=== PATIENT | male | born 1940 | race Caucasian/White ===

== ENCOUNTER 2021-04-13 01:28 | Inpatient (IN) | payer MEDICARE ==
[2021-04-13] VITALS (23 sets, daily range): BP systolic 114–173; BP diastolic 46–78
[~2021-04-13] VITALS: Ht 177.8 cm; Wt 107.3 kg
[2021-04-13] MEDS ORDERED: LABETALOL 20 MG/4 ML DISP.SYRIN. IVP PRN (02:15)
--- NOTE | 2021-04-13 02:26 | NUR ---
Pt admitted to room 109 from [facility] ED via EMS at 0100. Pt is alert and oriented but forgetful. Pt was unable to tell me what he was allergic too and he realized that he could not remember. Unable to give current medication list. Abrasions to Right knee, elbow, thumb, chin, above right eyebrow and right uatsdin area. Facial bruising noted to the forehead with swelling. Dr. Knight notified of pts admission at 0140 new orders received and instructed to consult Dr. Figueredo in the Am. NIHSS is 0, pt has no neurological deficits except for some forgetfulness. See assessment for further details.
[2021-04-13] MEDS ORDERED: IV NORMAL SALINE 1000ML BAG 1,000 ML IV ONE (09:45)
[2021-04-13] MEDS ORDERED: ONDANSETRON PF 4 MG/2 ML VIAL. IVP PRN (09:45)
[2021-04-13] MEDS ORDERED: fentaNYL PF VIAL 100 MCG/2 ML VIAL IVP PRN (09:45)
[2021-04-13] MEDS ORDERED: guaiFENesin DM 200MG/20MG 10 ML SYRUP PO PRN (09:45)
--- NOTE | 2021-04-13 09:57 | PDOC1 ---
History and Physical Date of Admission Date of Admission DATE: 04/13/21 TIME: 09:43 Identification/Chief Complaint Chief Complaint Fall Source Source: Patient History of Present Illness History of Present Illness Mr Hendrickson is a 80yo male with history of diabetes type 2, hypertension, high cholesterol, CAD s/p CABG who presents the ED at [facility] to be evaluated after falling. EMS reports he was walking into his house, he got dizzy and hit his head on a brick wall and fell. Patient notes he blacked out. EMS found patient slumped over the toilet, nonverbal, he had right-sided facial droop and right-sided weakness, but upon moving into ambulance he was moving his right side and right-sided facial droop improved. Labs with WBC 14.3, Hb 15.3, platelets 215, INR 1, PTT 23, lactic acid 4.1, NA 142, K4.3, BUN 25, CR 1.7, glucose 209, calcium 9.3, mag 2.2, bilirubin 0.6, AST 67, ALT 87, alkaline phosphatase 82, albumin 3.9, CK 240, rapid COVID-19 negative. Chest radiograph no acute abnormality, right shoulder x-ray with no fracture or dislocation CT head and cervical spine with right frontals scalp hematoma 1 cm thick and subdural hematoma on the right to 3 mm no midline shift. No CT neck abnormalities EKG sinus rhythm rate of 79 bpm T inverted in lead III flattened in lead II inverted in aVF. QTc 414. He was transferred to [facility] for further care for his SDH. Seen bedside in the ICU. He notes he is feeling a little confused. He also notes that frequently he has got lightheaded when standing up quickly and has once before passed out similar to bolus. No history of seizures previously. He is complaining of right shoulder pain and right elbow pain and right fifth finger pain Past Medical History Cardiovascular: CAD, HTN, Hyperlipidemia Endocrine: Diabetes Past Surgical History Past Surgical History: Appendectomy, CABG Family History Family History: Coronary Artery Disease, High Cholestrol, Hypertension Social History Smoke: No ALCOHOL: none Drugs: None Current Medications Current Medications Current Medications Acetaminophen (Tylenol) 650 mg PRN Q6HRS PRN PO MILD PAIN / TEMP > 100.3'F; Start 04/13/21 at 02:15 Labetalol HCl (Normodyne Iv Push) 10 mg PRN Q15MIN PRN IVP HYPERTENSION; Start 04/13/21 at 02:15 Allergies Allergies: Coded Allergies: Penicillins (Verified Allergy, Unknown, 04/13/21) ROS General: YES: Fatigue, Malaise; No: Chills, Night Sweats, Appetite, Other PSYCHOLOGICAL ROS: No: Anxiety, Behavioral Disorder, Concentration difficultie, Decreased libido, Depression, Disorientation, Hallucinations, Hostility, Irritablity, Memory difficulties, Mood Swings, Obsessive thoughts, Physical abuse, Sexual abuse, Sleep disturbances, Suicidal ideation, Other Eyes: No Blurry vision, No Decreased vision, No Double vision, No Dry eyes, No Excessive tearing, No Eye Pain, No Itchy Eyes, No Loss of vision, No Photophobia, No Scotomata, No Uses contacts, No Uses glasses, No Other HEENT: YES: Heacaches; No: Visual Changes, Hearing change, Nasal congestion, Nasal discharge, Oral lesions, Sinus pain, Sore Throat, Epistaxis, Sneezing, Snoring, Tinnitus, Vertigo, Vocal changes, Other ALLERGY AND IMMUNOLOGY: No: Hives, Insect Bite Sensitivity, Itchy/Watery Eyes, Nasal Congestion, Post Nasal Drip, Seasonal Allergies, Other Hematological and Lymphatic: No: Bleeding Problems, Blood Clots, Blood Transfusions, Brusing, Night Sweats, Pallor, Swollen Lymph Nodes, Other ENDOCRINE: No: Breast Changes, Galactorrhea, Hair Pattern Changes, Hot Flashes, Malaise/lethargy, Mood Swings, Palpitations, Polydipsia/polyuria, Skin Changes, Temperature Intolerance, Unexpected Weight Changes, Other Breast: No New/Changing Breast Lumps, No Nipple changes, No Nipple discharge, No Other Respiratory: No: Cough, Hemoptysis, Orthopnea, Pleuritic Pain, Shortness of breath, SOB with excertion, Sputum Changes, Stridor, Tachypnea, Wheezing, Other Cardiovascular: No Chest Pain, No Palpitations, No Orthopnea, No Paroxysmal Noc. Dyspnea, No Edema, No Lt Headedness, No Other Gastrointestinal: No Nausea, No Vomiting, No Abdominal Pain, No Diarrhea, No Constipation, No Melena, No Hematochezia, No Other Genitourinary: No Dysuria, No Frequency, No Incontinence, No Hematuria, No Retention, No Discharge, No Urgency, No Pain, No Flank Pain, No Other, No , No , No , No , No , No , No Musculoskeletal: No Gait Disturbance, No Joint Pain, No Joint Stiffness, No Joint Swelling, No Muscle Pain, No Muscular Weakness, No Pain In:, No Swelling In:, No Other Neurological: No Behavorial Changes, No Bowel/Bladder ControlChng, No Confusion, No Dizziness, No Gait Disturbance, No Headaches, No Impaired Coord/balance, No Memory Loss, No Numbness/Tingling, No Seizures, No Speech Problems, No Tremors, No Visual Changes, No Weakness, No Other Skin: No Dry Skin, No Eczema, No Hair Changes, No Lumps, No Mole Changes, No Mottling, No Nail Changes, No Pruritus, No Rash, No Skin Lesion Changes, No Other, No Acne Physical Exam General: Alert, Cooperative, No acute distress HEENT: PERRLA, EOMI, Mucous membr. moist/pink, Other (To bruises above right orbit and on right chin.) Lungs: Clear to auscultation, Normal air movement Heart: S1S2, RRR, no thrills, no rubs, no gallops, no murmurs Abdomen: Normal bowel sounds, Soft, No tenderness, No hepatosplenomegaly, No masses Rectal Exam: not examined Extremities: No edema, Normal pulses Skin: Other (Right upper extremity with no obvious deformity but tenderness on palpation of the right shoulder, limited range of motion to the right upper extremity specifically shoulder due to pain. Equal radial, medial, ulnar s ensation to the right fingers. +2 right radial pulse. Cap refill less than 2 seconds the right fingers) Neuro: Normal gait, Normal speech, Strength at 5/5 X4 ext, Normal tone, Sensation intact, Cranial nerves 3-12 NL, Reflexes 2+ Psych/Mental Status: Mental status NL, Mood NL Vitals Vitals Vital Signs Date Time Temp Pulse Resp B/P (MAP) Pulse Ox O2 Delivery O2 Flow Rate FiO2 04/13/21 07:00 67 20 139/52 (81) 97 Room Air 04/13/21 04:[address] head and cervical spine without contrast 04/12/2021 8:35 PM Head: There is a right for head scalp hematoma measuring 1.0 cm in thickness. There is a subdural hematoma along the falx measuring up to 3 mm asymmetric to the left. Ventricles, sulci and basal cisterns are prominent compatible with mild generalized cerebral volume loss. There is no hydrocephalus. Luevano-white matter differentiation is normal. There is no mass, mass effect or midline shift. Posterior fossa is normal in appearance. Visualized portions of the orbits are normal with exception of bilateral lens replacement. Paranasal sinuses are well aerated. Mastoid air cells are well aerated. Cervical spine: Alignment of the cervical spine is normal. Vertebral body heights are maintained. No acute fracture is identified. There is moderate to advanced disc height loss at C3-C4, C5-C6 and C6-C7. Degenerative changes are identified at t he atlantoaxial articulation with thickening of the transverse ligament. Posterior fossa is normal in appearance. Skull base is intact. At C2-C3, there is a posterior disc osteophyte complex. Severe facet arthropathy with mild uncovertebral joint disease resulting in moderate bilateral neuroforaminal stenosis. At C3-C4, there is a posterior disc osteophyte complex with severe right and moderate left facet arthropathy and mild uncovertebral joint disease resulting in moderate right and mild left foraminal stenosis and mild osseous canal stenosis. At C4-C5, there is a mild disc bulge. Moderate facet and uncovertebral joint disease with mild bilateral neuroforaminal stenosis. At C5-C6, there is a posterior disc osteophyte complex with calcified left central disc extrusion. Moderate facet arthropathy. Severe left and moderate joint disease. Moderate left and mild right neural foraminal stenosis. Moderate spinal canal stenosis. At C6-C7, there is a posterior disc osteophyte complex. Mild facet arthropathy. Moderate uncovertebral joint disease. Mild to moderate left neuroforaminal stenosis. Mild osseous spinal canal stenosis. There is no compressive epidural hematoma. No paraspinal soft tissue abnormality. Thyroid gland is normal in appearance. IMPRESSION: 1. There is a subdural hematoma along the falx measuring 3 mm without significant midline shift or mass effect. Next on 2. Mild generalized cerebral volume loss. Low-attenuation in the periventricular white matter is suggestive of chronic small vessel ischemic changes. 3. No acute fracture or malalignment of the cervical spine. Moderate cervical spondylosis. VTE Prophylaxis Ordered VTE Prophylaxis Devices: Yes VTE Pharmacological Prophylaxi: Contraindicated Assessment/Plan Assessment/Plan A/P: Subdural hematoma - will monitor in ICU. Neurosurgery consulted. Strict BP control. Made in ICU. Repeat CT head 24 to 36 hours per neurosurgery recommendation Confusion - metabolic encephalopathy likely post-concussive, less likely post- ictal, no seizure history Syncope -sounds like vasovagal syncope versus orthostatic hypotension. Will remain on telemetry monitoring check carotid Dopplers. PT for gait testing. Orthostatics Right shoulder pain -simple musculoskeletal injury no fracture on radiograph Facial contusion -local wound care KEM -likely vasomotor nephropathy from dehydration with fall will hydrate Transaminitis -no clear etiology may be hypotension mediated Leukocytosis -stress related with SDH Diabetes type 2 - sliding scale Hypertension - IV labetalol High cholesterol - statin CAD s/p CABG - bb FEN - ADAT PPX - SCDs FULL CODE Dispo - ICU cc time 47 min Justifications for Admission Other Justification QUIANA TAVARES MD Apr 13, 2021 09:57
--- NOTE | 2021-04-13 14:35 | RAD ---
Exam performed: Right elbow and hand/fifth digit. HISTORY: Fall, pain. DATE OF SERVICE: 04/21/2020 comparison: None available Findings : Single AP view of the right hip as well as lateral and oblique views of the fifth digit is obtained. Normal alignment is preserved. There is a small ossific fragment seen in the distal dorsal aspect of the middle phalanx with associated soft tissue swelling. AP and lateral view of the right elbow demonstrates normal alignment. There is no acute fracture or d islocation. No soft tissue swelling or foreign body seen. There is no joint effusion. IMPRESSION: Suspected avulsion fracture at the distal dorsal aspect of the fifth middle phalanx No acute abnormality seen in the right elbow Electronically signed by: Carrie Milton MD (04/13/2021 2:32 PM) [facility]
--- NOTE | 2021-04-13 16:01 | RAD ---
Exam performed: CT scan of the head without contrast. Date of Service: 04/13/2021. Comparison: None available. Clinical History: Follow-up subdural hemorrhage. Technique: Helical acquisitions are obtained from the foramen magnum to the vertex without intravenou s administration of contrast. Findings: There is interval improvement in previously seen subdural hematoma along the anterior falx which now measures up to 2.2 mm (previously measured 3.3 mm. There is also improvement in previously seen right scalp hematoma. Prominence of cortical sulci and ventricular system is noted consistent with age-related atrophy. The re are areas of low-attenuation in both periventricular and subcortical deep white matter suggesting small vessel ischemic changes. Normal meade-white differentiation is maintained. There is no extra ax ial fluid collection, intraparenchymal hemorrhage or mass lesion. The visualized portions of the orb its, paranasal sinuses and the mastoid air cells appear clear. The calvarium is intact. Impression: 1. Interval improvement in previously seen subdural hematoma along the anterior falx. PQRS Compliance Statement: One or more of the following individualized dose reduction techniques were utilized for this examinat ion: 1. Automated exposure control 2. Adjustment of the mA and/or kV according to patient size 3. Use of iterative reconstruction technique Electronically signed by: Carrie Milton MD (04/13/2021 3:58 PM) [facility]
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
--- NOTE | 2021-04-13 17:00 | PDOC ---
Provider Note Date of Service: DATE: 04/13/21 TIME: 16:52 Provider Note Patient seen and examined at 1345 consulted for SDH fell on brick steps c/o mild headache alert, oriented. Pupils equal and reactive to light, extraocular movements areintact. normal strength and sensation intact Subdural hematoma along the falx measuring 3 mm without midline shift. He just had a second head CT which appears stable, slightly improved. ok to downgrade and keep in ICU overnight. SCDs D/W RN Justifications for Admission Other Justification YSABEL PATTON MD Apr 13, 2021 17:00
--- NOTE | 2021-04-13 17:57 | RAD ---
EXAM: Bilateral carotid duplex with waveform analysis. CLINICAL HISTORY: Reason: Syncope, assess for carotid or vertebral insufficiency / Spl. Instructions: / History: . TECHNIQUE: Longitudinal and transverse sonographic images of the bilateral carotid arteries was perfo rmed utilizing grayscale, color and spectral Doppler techniques. COMPARISON: None available FINDINGS: Right Carotid: Mild scattered plaquing seen.. Left Carotid: Mild scattered plaquing seen . Vertebrals: Antegrade flow bilaterally. Right: PSV CCA (cm/s): 106.0 PSV ICA (cm/s): 126.0 EDV ICA (cm/s): 19.0 PSV ECA (cm/s): 156.0 ICA/CCA Ratio: 1.2 Left: PSV CCA (cm/s): 119 .0 PSV ICA (cm/s): 129.0 EDV ICA (cm/s): 23.0 PSV ECA (cm/s): 335.0 ICA/CCA Ratio: 1.3 IMPRESSION: Mild atheromatous plaquing involving both carotid arteries. No evidence of aortic stenosis seen. Markedly elevated velocities in the left external carotid artery suggesting moderate to severe stenos is Consensus Panel Luevano-scale and Doppler US Criteria for Diagnosis of ICA Stenosis Degree of Stenosis (%) ICA PSV (Cm/sec) Plaque Estimate (%)* Normal <125 None <50 <125 <50 50-69 125-230 >50 >70 but < near occlusion >230 >50 Near occlusion High, low, or undetectable Visible Total occlusion Undetectable Visible, no detectable lumen *Plaque estimate (diameter reduction) with luevano-scale and color Doppler US Degree of Stenosis (%) ICA/CCA PSV Ratio ICA EDV (cm/sec) Normal <2.0 <40 <50 <2.0 <40 50-69 2.0-4.0 40-100 >70 but < near occlusion >4.0 >100 Near occlusion Variable Variable Total occlusion Not applicable Not applicable Electronically signed by: Carrie Milton MD (04/13/2021 5:55 PM) [facility]
[2021-04-14 03:03] VITALS: BP 169/66
[2021-04-14] MEDS ORDERED: METF500T16 PO (05:58)
[2021-04-14] MEDS ORDERED: ASPI81TA59 PO (05:58)
[2021-04-14] MEDS ORDERED: METO-247 PO (05:58)
[2021-04-14] MEDS ORDERED: HYDR12.58 PO (06:40)
[2021-04-14] MEDS ORDERED: cholesterol med (06:41)
[2021-04-14 07:00] VITALS: BP 184/84
--- NOTE | 2021-04-14 08:35 | PDOC ---
PROGRESS NOTES Date of Service DATE: 04/14/21 TIME: 08:32 Assessment Subdural hematoma along the falx measuring 3 mm without midline shift. Improved on second head CT 04/13 Cardiogenic syncope, no evidence that he had a seizure or a stroke Plan Okay to transfer to telemetry Neurosurgery is also following. PT/OT Objective Vital Signs Date Time Temp Pulse Resp B/P (MAP) Pulse Ox O2 Delivery O2 Flow Rate FiO2 04/14/21 03:03 97.8 73 16 169/66 (100) 96 Room Air 97.8 Intake and Output 04/14/21 07:00 Intake Total 1500 ml Output Total 1 ml Balance 1499 ml Intake Oral 500 ml IV Total 1000 ml Output Urine Total 1 ml # Voids 2 # Bowel Movements 1 PHYSICAL EXAM Alert. Oriented to time, place and person. PERRL. EOMI. CN: no focal findings. Muscle tone: normal. Muscle strength: 5/5 DTR: 1+ Plantar reflex: Flexor Gait: not examined in bed. Sensory exam: no abnormal findings. No cerebellar signs elicited. Review of Relevant I have reviewed the following items deirdre (where applicable) has been applied. Medications Current Medications Acetaminophen (Tylenol) 650 mg PRN Q6HRS PRN PO MILD PAIN / TEMP > 100.3'F; Start 04/13/21 at 02:15 Labetalol HCl (Normodyne Iv Push) 10 mg PRN Q15MIN PRN IVP HYPERTENSION; Start 04/13/21 at 02:15 Ondansetron HCl (Zofran) 4 mg PRN Q4HRS PRN IVP NAUSEA/VOMITING; Start 04/13/21 at 09:45 Guaifenesin (Robitussin Dm) 10 ml PRN Q6HRS PRN PO COUGH; Start 04/13/21 at 09:45 Fentanyl Citrate (Fentanyl 2ml Vial) 25 mcg PRN Q3HRS PRN IVP SEVERE PAIN 7-10 Last administered on 04/13/21at 11:42; Start 04/13/21 at 09:45 Sodium Chloride 1,000 ml @ 100 mls/hr 1X ONCE IV Last administered on 04/13/21at 11:42; Start 04/13/21 at 09:45; Stop 04/13/21 at 19:44; Status DC Active Scripts Active Reported [cholesterol med] Hydrochlorothiazide Tablet (Hydrochlorothiazide) 12.5 Mg Tablet 12.5 Mg PO DAILY Metoprolol Succinate ( Xl ) (Metoprolol Succinate) 100 Mg Tab.er.24h 100 Mg PO DAILY Children's Aspirin (Aspirin) 81 Mg Tab.chew 81 Mg PO DAILY Metformin Hcl 500 Mg Tablet 500 Mg PO BIDWMEALS Vitals/I & O Vital Sign - Last 24 Hours 04/13/21 04/13/21 04/13/21 04/13/21 09:00 10:00 11:00 11:42 Pulse 66 68 65 Resp 14 14 12 10 B/P (MAP) 139/66 (90) 142/60 (87) 140/65 (90) Pulse Ox 98 98 98 96 O2 Delivery Room Air Room Air Room Air Room Air 04/13/21 04/13/21 04/13/21 04/13/21 12:00 12:00 12:00 13:00 Temp 98.9 98.9 Pulse 64 72 Resp 14 15 16 B/P (MAP) 114/46 (68) 153/66 (95) Pulse Ox 94 97 94 O2 Delivery Room Air Room Air Room Air Room Air 04/13/21 04/13/21 04/13/21 04/13/21 14:00 15:00 16:00 16:00 Temp 98.7 98.7 Pulse 64 67 68 Resp 16 13 12 B/P (MAP) 118/52 (74) 145/62 (89) 150/68 (95) Pulse Ox 97 96 97 O2 Delivery Room Air Room Air Room Air Room Air 04/13/21 04/13/21 04/13/21 04/13/21 17:00 18:00 19:00 20:00 Temp 98.8 98.8 Pulse 68 65 72 Resp 12 15 20 B/P (MAP) 116/46 (69) 165/72 (103) 168/74 (105) Pulse Ox 97 99 97 O2 Delivery Room Air Room Air Room Air Room Air 04/13/21 04/14/21 23:00 03:03 Temp 98.7 97.8 98.7 97.8 Pulse 75 73 Resp 20 16 B/P (MAP) 165/76 (105) 169/66 (100) Pulse Ox 96 96 O2 Delivery Room Air Room Air Intake and Output 04/13/21 04/13/21 04/14/21 15:00 23:00 07:00 Intake Total 400 ml 1000 ml 100 ml Output Total 1 ml 0 ml Balance 399 ml 1000 ml [address] scan of the head without contrast, 04/13/2021. There is interval improvement in previously seen subdural hematoma along the anterior falx which now measures up to 2.2 mm (previously measured 3.3 mm. There is also improvement in previously seen right scalp hematoma. Prominence of cortical sulci and ventricular system is noted consistent with age-related atrophy. There are areas of low-attenuation in both periventricular and subcortical deep white matter suggesting small vessel ischemic changes. Normal meade-white differentiation is maintained. There is no extra axial fluid collection, intraparenchymal hemorrhage or mass lesion. The visualized portions of the orbits, paranasal sinuses and the mastoid air cells appear clear. The calvarium is intact. Impression: 1. Interval improvement in previously seen subdural hematoma along the anterior falx. Justicifation of Admission Dx: Justifications for Admission: Justification of Admission Dx: N/A RADHA BERNAL MD Apr 14, 2021 08:35
[2021-04-14] MEDS: ACETAMINOPHEN 325 MG TABLET. PO PRN ×2 (08:49→20:53)
[2021-04-14] MEDS: METOPROLOL SUCC 24HR ER 100 MG TAB.ER.24H. PO SCH (09:46)
[2021-04-14] MEDS: hydroCHLOROthiazide 12.5 MG CAPSULE PO SCH (09:46)
--- NOTE | 2021-04-14 10:01 | PDOC ---
[facility] PROGRESS NOTE Date of Service DOS: DATE: 04/14/21 TIME: 09:56 Chief Complaint Chief Complaint Subdural hematoma - will monitor in ICU. Neurosurgery consulted. needs better BP control. Repeat CT head better neurosurg and neuro following Acute metabolic encephalopathy likely post-concussive, less likely post-ictal, no seizure history Syncope - vasovagal syncope versus orthostatic hypotension. on telemetry nicole toring check carotid Dopplers. PT for gait testing. Orthostatics Right shoulder pain musculoskeletal injury no fracture on radiograph Facial contusion -local wound care acute vasomotor nephropathy from dehydration Transaminitis -no clear etiology may be hypotension mediated Leukocytosis -stress related with SDH Diabetes type 2 - sliding scale Hypertension - IV labetalol High cholesterol - statin CAD s/p CABG - bb History of Present Illness History of Present Illness increase BP meds right thumb pain, pain control, OOB to chair downgrade to med monitor Vitals/I&O Vitals/I&O: Vital Signs Date Time Temp Pulse Resp B/P (MAP) Pulse Ox O2 Delivery O2 Flow Rate FiO2 04/14/21 09:46 82 176/74 04/14/21 08:00 Room Air 04/14/21 07:00 99.3 24 98 99.3 I & O 04/13/21 04/13/21 04/14/21 15:00 23:00 07:00 Intake Total 400 ml 1000 ml 100 ml Output Total 1 ml 0 ml Balance 399 ml 1000 ml 100 ml Physical Exam General: Alert, Cooperative, No acute distress Heart: Regular rate Abdomen: Normal bowel sounds, Soft, No tenderness, No hepatosplenomegaly, No masses Extremities: No edema, Normal pulses Skin: No rashes, Other (Right upper extremity with no obvious deformity but tenderness on palpation of the right shoulder, limited range of motion to the right upper extremity specifically shoulder due to pain. Equal radial, medial, ulnar sensation to the right fingers. +2 right radial pulse. Cap refill less than 2 seconds the right fingers) Comment Review of Relevant I have reviewed the following items deirdre (where applicable) has been applied. Medications: Current Medications Medications (Trade) Dose Ordered Sig/[place] Route PRN Reason Start Time Stop Time Status Last Admin Dose Admin Metoprolol Succinate (Toprol Xl) 100 mg DAILY PO 04/14/21 10:00 04/14/21 09:46 Hydrochlorothiazide (Microzide) 12.5 mg DAILY PO 04/14/21 10:00 04/14/21 09:46 Justifications for Admission Other Justification JAYCE MAYA MD Apr 14, 2021 10:01
[2021-04-14 10:45] LABS: ALBUMIN 3.1 g/dL (3.4-5.0); ALBUMIN/GLOBULIN RATIO 0.8 (1.0-1.7); CALCIUM 8.5 mg/dL (8.5-10.1); CREATININE 0.9 mg/dL (0.7-1.3); GFR 81.6; POTASSIUM 4.1 mmol/L (3.5-5.1); TOTAL BILIRUBIN 1.2 mg/dL (0.2-1.0)
--- NOTE | 2021-04-14 10:50 | NUR ---
SS following for discharge planning. SS reviewed pt chart and discussed with pt RN. Pt is from home with spouse and is currently on room air. Neurosurgery and Neurology consulted. PT/OT ordered. SS will continue to follow for discharge planning.
[2021-04-14 11:00] VITALS: BP 169/61
[2021-04-14] MEDS ORDERED: LISI20TA18 PO (11:33)
[2021-04-14] MEDS ORDERED: SIMV20TA18 PO (11:33)
[2021-04-14] MEDS ORDERED: GABA800T5 PO (11:33)
[2021-04-14] MEDS ORDERED: OMEG1CAP38 PO (11:33)
[2021-04-14] MEDS ORDERED: TRIA1CAP3 PO (11:33)
[2021-04-14] MEDS ORDERED: GLIP10TA24 PO (11:33)
[2021-04-14] MEDS ORDERED: VITA400T6 PO (11:33)
[2021-04-14] MEDS ORDERED: VITA25006 PO (11:33)
--- NOTE | 2021-04-14 12:00 | PDOC ---
PROGRESS NOTES Date of Service DATE: 04/14/21 TIME: 11:58 Subjective Subjective up in chair denies headache Objective Objective Vital Signs Date Time Temp Pulse Resp B/P (MAP) Pulse Ox O2 Delivery O2 Flow Rate FiO2 04/14/21 11:00 98.4 71 16 169/61 (97) 97 Room Air 98.4 Intake and Output 04/14/21 07:00 Intake Total 1500 ml Output Total 1 ml Balance 1499 ml Intake Oral 500 ml IV Total 1000 ml Output Urine Total 1 ml # Voids 2 # Bowel Movements 1 Physical Exam General: Alert, Cooperative, No acute distress MUSCULOSKELETAL: Other (PLEITEZ) Neuro: Normal speech Plan Plan of Care Subdural hematoma along the falx measuring 3 mm without midline shift. Improved on second head CT 04/13 OK to transfer to floor will arrange f/u CT head in 10 to 14 days Comment Review of Relevant I have reviewed the following items deirdre (where applicable) has been applied. Labs Laboratory Tests Test 04/14/21 10:05 Sodium Level 138 mmol/L (136-145) Potassium Level 4.1 mmol/L (3.5-5.1) Chloride Level 103 mmol/L (98-107) Carbon Dioxide Level 22 mmol/L (21-32) Anion Gap 13 (6-14) Blood Urea Nitrogen 15 mg/dL (8-26) Creatinine 0.9 mg/dL (0.7-1.3) Estimated GFR (Cockcroft-Gault) 81.6 BUN/Creatinine Ratio 17 (6-20) Glucose Level 267 mg/dL (70-99) Calcium Level 8.5 mg/dL (8.5-10.1) Total Bilirubin 1.2 mg/dL (0.2-1.0) Aspartate Amino Transf (AST/SGOT) 27 U/L (15-37) Alanine Aminotransferase (ALT/SGPT) 53 U/L (16-63) Alkaline Phosphatase 64 U/L (46-116) Total Protein 7.0 g/dL (6.4-8.2) Albumin 3.1 g/dL (3.4-5.0) Albumin/Globulin Ratio 0.8 (1.0-1.7) Laboratory Tests Test 04/14/21 10:05 Sodium Level 138 mmol/L (136-145) Potassium Level 4.1 mmol/L (3.5-5.1) Chloride Level 103 mmol/L (98-107) Carbon Dioxide Level 22 mmol/L (21-32) Anion Gap 13 (6-14) Blood Urea Nitrogen 15 mg/dL (8-26) Creatinine 0.9 mg/dL (0.7-1.3) Estimated GFR (Cockcroft-Gault) 81.6 BUN/Creatinine Ratio 17 (6-20) Glucose Level 267 mg/dL (70-99) Calcium Level 8.5 mg/dL (8.5-10.1) Total Bilirubin 1.2 mg/dL (0.2-1.0) Aspartate Amino Transf (AST/SGOT) 27 U/L (15-37) Alanine Aminotransferase (ALT/SGPT) 53 U/L (16-63) Alkaline Phosphatase 64 U/L (46-116) Total Protein 7.0 g/dL (6.4-8.2) Albumin 3.1 g/dL (3.4-5.0) Albumin/Globulin Ratio 0.8 (1.0-1.7) Medications Current Medications Acetaminophen (Tylenol) 650 mg PRN Q6HRS PRN PO MILD PAIN / TEMP > 100.3'F Last administered on 04/14/21at 08:49; Start 04/13/21 at 02:15 Labetalol HCl (Normodyne Iv Push) 10 mg PRN Q15MIN PRN IVP HYPERTENSION; Start 04/13/21 at 02:15 Ondansetron HCl (Zofran) 4 mg PRN Q4HRS PRN IVP NAUSEA/VOMITING; Start 04/13/21 at 09:45 Guaifenesin (Robitussin Dm) 10 ml PRN Q6HRS PRN PO COUGH; Start 04/13/21 at 09:45 Fentanyl Citrate (Fentanyl 2ml Vial) 25 mcg PRN Q3HRS PRN IVP SEVERE PAIN 7-10 Last administered on 04/13/21at 11:42; Start 04/13/21 at 09:45 Sodium Chloride 1,000 ml @ 100 mls/hr 1X ONCE IV Last administered on 04/13/21at 11:42; Start 04/13/21 at 09:45; Stop 04/13/21 at 19:44; Status DC Metoprolol Succinate (Toprol Xl) 100 mg DAILY PO Last administered on 04/14/21at 09:46; Start 04/14/21 at 10:00 Hydrochlorothiazide (Microzide) 12.5 mg DAILY PO Last administered on 04/14/21at 09:46; Start 04/14/21 at 10:00 Amlodipine Besylate (Norvasc) 2.5 mg DAILY PO Last administered on 04/14/21at 10:00; Start 04/14/21 at 10:00 Active Scripts Active Reported Vitamin E (Vitamin E Mixed) 400 Unit Tablet 400 Unit PO DAILY [place] 3 Fish Oil Softgel ([place]-3 Fatty Acids/Fish Oil) 1 Each Capsule.dr 1 Each PO DAILY Noxifol-D3 2,500 Unit-1 mg Tab (Vitamin D3/Folic Acid) 2,500 Unit Tablet 1 Tab PO DAILY 30 Days Simvastatin 20 Mg Tablet 1 Tab PO QHS Triamterene-Hctz 37.5-25 Mg Cp (Triamterene/Hydrochlorothiazid) 1 Each Capsule 1 Cap PO DAILY Gabapentin 800 Mg Tablet 800 Mg PO TID Lisinopril 20 Mg Tablet 1 Tab PO DAILY Glipizide Er (Glipizide) 10 Mg Tab.er.24 1 Tab PO DAILY [cholesterol med] Hydrochlorothiazide Tablet (Hydrochlorothiazide) 12.5 Mg Tablet 12.5 Mg PO DAILY Metoprolol Succinate ( Xl ) (Metoprolol Succinate) 100 Mg Tab.er.24h 100 Mg PO DAILY Children's Aspirin (Aspirin) 81 Mg Tab.chew 81 Mg PO DAILY Metformin Hcl 500 Mg Tablet 500 Mg PO QID Vitals/I & O Vital Sign - Last 24 Hours 04/13/21 04/13/21 04/13/21 04/13/21 12:00 12:00 12:00 13:00 Temp 98.9 98.9 Pulse 64 72 Resp 14 15 16 B/P (MAP) 114/46 (68) 153/66 (95) Pulse Ox 94 97 94 O2 Delivery Room Air Room Air Room Air Room Air 04/13/21 04/13/21 04/13/21 04/13/21 14:00 15:00 16:00 16:00 Temp 98.7 98.7 Pulse 64 67 68 Resp 16 13 12 B/P (MAP) 118/52 (74) 145/62 (89) 150/68 (95) Pulse Ox 97 96 97 O2 Delivery Room Air Room Air Room Air Room Air 04/13/21 04/13/21 04/13/21 04/13/21 17:00 18:00 19:00 20:00 Temp 98.8 98.8 Pulse 68 65 72 Resp 12 15 20 B/P (MAP) 116/46 (69) 165/72 (103) 168/74 (105) Pulse Ox 97 99 97 O2 Delivery Room Air Room Air Room Air Room Air 04/13/21 04/14/21 04/14/21 04/14/21 23:00 03:03 07:00 08:00 Temp 98.7 97.8 99.3 98.7 97.8 99.3 Pulse 75 73 86 Resp 20 16 24 B/P (MAP) 165/76 (105) 169/66 (100) 184/84 (117) Pulse Ox 96 96 98 O2 Delivery Room Air Room Air Room Air Room Air 04/14/21 04/14/21 04/14/21 09:46 10:00 11:00 Temp 98.4 98.4 Pulse 82 71 71 Resp 16 B/P (MAP) 176/74 169/61 169/61 (97) Pulse Ox 97 O2 Delivery Room Air Intake and Output 04/13/21 04/13/21 04/14/21 15:00 23:00 07:00 Intake Total 400 ml 1000 ml 100 ml Output Total 1 ml 0 ml Balance 399 ml 1000 ml 100 ml Justifications for Admission Other Justification HANNAH BELL [employer]IPPER Apr 14, 2021 12:00
[2021-04-14 12:53] LABS: BASO # 0.1 x10^3/uL (0.0-0.2); BASO % 1 % (0-3); EOS # 0.3 x10^3/uL (0.0-0.7); EOS % 3 % (0-3); HEMATOCRIT 42.1 % (39.0-53.0); HEMOGLOBIN 14.2 g/dL (13.0-17.5); LYMPH % 38 % (24-48); MEAN CORPUSCULAR HEMOGLOBIN 30 pg (25-35); MEAN CORPUSCULAR HGB CONC 34 g/dL (31-37); MEAN CORPUSCULAR VOLUME 90 fL (79-100); MONO # 0.8 x10^3/uL (0.0-1.1); MONO % 8 % (0-9); NEUT # 5.4 x10^3/uL (1.8-7.7); NEUT % 51 % (31-73); PLATELET COUNT 192 x10^3/uL (140-400); RED CELL DISTRIBUTION WIDTH 13.8 % (11.5-14.5); WHITE BLOOD COUNT 10.6 x10^3/uL (4.0-11.0)
[2021-04-14] MEDS ORDERED: LISINOPRIL 20 MG TABLET PO SCH (13:00)
[2021-04-14] MEDS ORDERED: ASPIRIN CHEWABLE 81 MG TABLET. PO SCH (13:00)
[2021-04-14] MEDS: GABAPENTIN 400 MG CAPSULE. PO SCH ×2 (15:00→20:53)
[2021-04-14 16:00] VITALS: BP 166/75
[2021-04-14 19:00] VITALS: BP 159/72
[2021-04-14] MEDS ORDERED: SIMVASTATIN 20 MG TABLET PO SCH (21:00)
[2021-04-14 23:00] VITALS: BP 142/65
[2021-04-15 03:00] VITALS: BP 150/74
[2021-04-15 07:00] VITALS: BP 198/93
[2021-04-15] MEDS ORDERED: GABA-689 PO (07:42)
--- NOTE | 2021-04-15 07:45 | SNU/HH DC ---
DISCHARGE WITH HOME HEALTH DISCHARGE INFORMATION: Discharge Date: Apr 15, 2021 Final Diagnosis: Subdural hematoma from concussion fall htn Acute encephalopathy likely post-concussive, Syncope - vasovagal syncope versus orthostatic hypotension. Right shoulder pain musculoskeletal injury no fracture on radiograph Facial contusion -local wound care acute vasomotor nephropathy from dehydration Transaminitis -no clear etiology may be hypotension mediated Leukocytosis -stress related with SDH Diabetes type 2 - sliding scale High cholesterol - statin CAD s/p CABG - bb Condition on Discharge: Stable CODE STATUS: Code Status: Full HOME HEALTH: Face to Face: I certify this patient is under my care and that I, had a face to face encounter that meets the physician face to face encounter requirements with this patient on 04/15 Medical Complications: Other (fall, SDH) RN For Eval/Treatment: Yes Physical Therapy For: Evalulation/Treatment Occupational Therapy For: Evaluation/Treatment Pt Meets Homebound Status: Other: (recent severe fall, head injury, should improve soon) POST DISCHARGE ORDERS: Activity Instructions for Disc: No restrictions, Resume previous activity Weight Bearing Status after Di: No restrictions DIET AFTER DISCHARGE: Cardiac FOLLOW-UP: Follow up with: primary care 1-2 weeks TREATMENT/EQUIPMENT ORDERS: Adaptive Equipment Issued: None CERTIFICATION STATEMENT: Certification Statement: Certification Statement: Based on the above finding, I certify that this patient is confined to the home and needs intermittent custodial care, physical t herapy and/or speech therapy, or continues to need occupational therapy.~ This patient is under my care, and I have initiated the establishment of the plan of care.~ This patient will be followed by myself or a community physician who will periodically review the plan of care. Home Meds Active Scripts Gabapentin (GABAPENTIN ) 400 Mg Capsule, 400 MG PO TID for nerve pain, #90 CAP Prov:JAYCE MAYA MD 04/15/21 Reported Medications Vitamin E Mixed (VITAMIN E) 400 Unit Tablet, 400 UNIT PO DAILY for supplement, TAB 04/14/21 [place]-3 Fatty Acids/Fish Oil ([place] 3 FISH OIL SOFTGEL) 1 Each Capsule., 1 EACH PO DAILY for heart health, CAP 04/14/21 Vitamin D3/Folic Acid (Noxifol-D3 2,500 Unit-1 mg Tab) 2,500 Unit Tablet, 1 TAB PO DAILY for supplement for 30 Days, #30 TAB 0 Refills 04/14/21 Simvastatin (SIMVASTATIN) 20 Mg Tablet, 1 TAB PO QHS for high cholesterol, #30 TAB 5 Refills 04/14/21 Triamterene/Hydrochlorothiazid (TRIAMTERENE-HCTZ 37.5-25 MG CP) 1 Each Capsule, 1 CAP PO DAILY for diuretic, #30 CAP 5 Refills 04/14/21 Lisinopril (LISINOPRIL) 20 Mg Tablet, 1 TAB PO DAILY for hypertension, #30 TAB 5 Refills 04/14/21 Glipizide (GLIPIZIDE ER) 10 Mg Tab.er.24, 1 TAB PO DAILY for diabetes, #90 TAB 1 Refill 04/14/21 [cholesterol med] No Conflict Check 04/14/21 Hydrochlorothiazide (HYDROCHLOROTHIAZIDE TABLET) 12.5 Mg Tablet, 12.5 MG PO DAILY for DIURETIC, TAB 0 Refills 04/14/21 Metoprolol Succinate (METOPROLOL SUCCINATE ( XL )) 100 Mg Tab.er.24h, 100 MG PO DAILY for FOR HYPERTENSION, #30 TAB 0 Refills 04/14/21 Aspirin (Children's Aspirin) 81 Mg Tab.chew, 81 MG PO DAILY for heart health, TAB.CHEW 04/14/21 Metformin Hcl (METFORMIN HCL) 500 Mg Tablet, 500 MG PO QID for ANTI-DIABETIC, TAB 0 Refills 04/14/21 Discontinued Reported Medications Gabapentin (GABAPENTIN) 800 Mg Tablet, 800 MG PO TID for NEUROGENIC PAIN, TAB 04/14/21 JAYCE MAYA MD Apr 15, 2021 07:45
[2021-04-15] MEDS: hydroCHLOROthiazide 12.5 MG CAPSULE PO SCH (08:51)
[2021-04-15] MEDS: METOPROLOL SUCC 24HR ER 100 MG TAB.ER.24H. PO SCH (08:52)
[2021-04-15] MEDS: GABAPENTIN 400 MG CAPSULE. PO SCH (08:53)
--- NOTE | 2021-04-15 09:22 | PDOC ---
PROGRESS NOTES Date of Service DATE: 04/15/21 TIME: 09:22 Assessment Subdural hematoma along the falx measuring 3 mm without midline shift. Improved on second head CT 04/13 Cardiogenic syncope, no evidence that he had a seizure or a stroke Plan Okay to transfer to telemetry Neurosurgery is also following, they will arrange follow-up head CT in 10-14 days PT/OT Needs fpc unit Subjective Still has some rib pain Objective Vital Signs Date Time Temp Pulse Resp B/P (MAP) Pulse Ox O2 Delivery O2 Flow Rate FiO2 04/15/21 08:54 83 198/93 04/15/21 08:00 Room Air 04/15/21 07:00 97.7 16 97 97.7 Intake and Output 04/15/21 07:00 Intake Total 750 ml Balance 750 ml Intake Oral 750 ml # Voids 5 PHYSICAL EXAM Alert. Oriented to time, place and person. PERRL. EOMI. CN: no focal findings. Muscle tone: normal. Muscle strength: 5/5 DTR: 1+ Plantar reflex: Flexor Gait: not examined in bed. Sensory exam: no abnormal findings. No cerebellar signs elicited. Review of Relevant I have reviewed the following items deirdre (where applicable) has been applied. Labs Laboratory Tests Test 04/14/21 10:05 04/14/21 12:07 Sodium Level 138 mmol/L (136-145) Potassium Level 4.1 mmol/L (3.5-5.1) Chloride Level 103 mmol/L (98-107) Carbon Dioxide Level 22 mmol/L (21-32) Anion Gap 13 (6-14) Blood Urea Nitrogen 15 mg/dL (8-26) Creatinine 0.9 mg/dL (0.7-1.3) Estimated GFR (Cockcroft-Gault) 81.6 BUN/Creatinine Ratio 17 (6-20) Glucose Level 267 mg/dL (70-99) Calcium Level 8.5 mg/dL (8.5-10.1) Total Bilirubin 1.2 mg/dL (0.2-1.0) Aspartate Amino Transf (AST/SGOT) 27 U/L (15-37) Alanine Aminotransferase (ALT/SGPT) 53 U/L (16-63) Alkaline Phosphatase 64 U/L (46-116) Total Protein 7.0 g/dL (6.4-8.2) Albumin 3.1 g/dL (3.4-5.0) Albumin/Globulin Ratio 0.8 (1.0-1.7) White Blood Count 10.6 x10^3/uL (4.0-11.0) Red Blood Count 4.70 x10^6/uL (4.30-5.70) Hemoglobin 14.2 g/dL (13.0-17.5) Hematocrit 42.1 % (39.0-53.0) Mean Corpuscular Volume 90 fL (79-100) Mean Corpuscular Hemoglobin 30 pg (25-35) Mean Corpuscular Hemoglobin Concent 34 g/dL (31-37) Red Cell Distribution Width 13.8 % (11.5-14.5) Platelet Count 192 x10^3/uL (140-400) Neutrophils (%) (Auto) 51 % (31-73) Lymphocytes (%) (Auto) 38 % (24-48) Monocytes (%) (Auto) 8 % (0-9) Eosinophils (%) (Auto) 3 % (0-3) Basophils (%) (Auto) 1 % (0-3) Neutrophils # (Auto) 5.4 x10^3/uL (1.8-7.7) Lymphocytes # (Auto) 4.0 x10^3/uL (1.0-4.8) Monocytes # (Auto) 0.8 x10^3/uL (0.0-1.1) Eosinophils # (Auto) 0.3 x10^3/uL (0.0-0.7) Basophils # (Auto) 0.1 x10^3/uL (0.0-0.2) Laboratory Tests Test 04/14/21 10:05 04/14/21 12:07 Sodium Level 138 mmol/L (136-145) Potassium Level 4.1 mmol/L (3.5-5.1) Chloride Level 103 mmol/L (98-107) Carbon Dioxide Level 22 mmol/L (21-32) Anion Gap 13 (6-14) Blood Urea Nitrogen 15 mg/dL (8-26) Creatinine 0.9 mg/dL (0.7-1.3) Estimated GFR (Cockcroft-Gault) 81.6 BUN/Creatinine Ratio 17 (6-20) Glucose Level 267 mg/dL (70-99) Calcium Level 8.5 mg/dL (8.5-10.1) Total Bilirubin 1.2 mg/dL (0.2-1.0) Aspartate Amino Transf (AST/SGOT) 27 U/L (15-37) Alanine Aminotransferase (ALT/SGPT) 53 U/L (16-63) Alkaline Phosphatase 64 U/L (46-116) Total Protein 7.0 g/dL (6.4-8.2) Albumin 3.1 g/dL (3.4-5.0) Albumin/Globulin Ratio 0.8 (1.0-1.7) White Blood Count 10.6 x10^3/uL (4.0-11.0) Red Blood Count 4.70 x10^6/uL (4.30-5.70) Hemoglobin 14.2 g/dL (13.0-17.5) Hematocrit 42.1 % (39.0-53.0) Mean Corpuscular Volume 90 fL (79-100) Mean Corpuscular Hemoglobin 30 pg (25-35) Mean Corpuscular Hemoglobin Concent 34 g/dL (31-37) Red Cell Distribution Width 13.8 % (11.5-14.5) Platelet Count 192 x10^3/uL (140-400) Neutrophils (%) (Auto) 51 % (31-73) Lymphocytes (%) (Auto) 38 % (24-48) Monocytes (%) (Auto) 8 % (0-9) Eosinophils (%) (Auto) 3 % (0-3) Basophils (%) (Auto) 1 % (0-3) Neutrophils # (Auto) 5.4 x10^3/uL (1.8-7.7) Lymphocytes # (Auto) 4.0 x10^3/uL (1.0-4.8) Monocytes # (Auto) 0.8 x10^3/uL (0.0-1.1) Eosinophils # (Auto) 0.3 x10^3/uL (0.0-0.7) Basophils # (Auto) 0.1 x10^3/uL (0.0-0.2) Medications Current Medications Acetaminophen (Tylenol) 650 mg PRN Q6HRS PRN PO MILD PAIN / TEMP > 100.3'F Last administered on 04/14/21at 20:53; Start 04/13/21 at 02:15 Labetalol HCl (Normodyne Iv Push) 10 mg PRN Q15MIN PRN IVP HYPERTENSION Last administered on 04/15/21at 08:54; Start 04/13/21 at 02:15 Ondansetron HCl (Zofran) 4 mg PRN Q4HRS PRN IVP NAUSEA/VOMITING; Start 04/13/21 at 09:45 Guaifenesin (Robitussin Dm) 10 ml PRN Q6HRS PRN PO COUGH; Start 04/13/21 at 09:45 Fentanyl Citrate (Fentanyl 2ml Vial) 25 mcg PRN Q3HRS PRN IVP SEVERE PAIN 7-10 Last administered on 04/13/21at 11:42; Start 04/13/21 at 09:45 Sodium Chloride 1,000 ml @ 100 mls/hr 1X ONCE IV Last administered on 04/13/21at 11:42; Start 04/13/21 at 09:45; Stop 04/13/21 at 19:44; Status DC Metoprolol Succinate (Toprol Xl) 100 mg DAILY PO Last administered on 04/15/21at 08:52; Start 04/14/21 at 10:00 Hydrochlorothiazide (Microzide) 12.5 mg DAILY PO Last administered on 04/15/21at 08:51; Start 04/14/21 at 10:00 Amlodipine Besylate (Norvasc) 2.5 mg DAILY PO Last administered on 04/15/21at 08:51; Start 04/14/21 at 10:00 Aspirin (Aspirin Chewable) 81 mg DAILY PO ; Start 04/14/21 at 13:00; Stop 04/14/21 at 12:23; Status DC Lisinopril (Prinivil) 20 mg DAILY PO Last administered on 04/14/21at 15:00; Start 04/14/21 at 13:00; Stop 04/15/21 at 09:05; Status DC Simvastatin (Zocor) 20 mg QHS PO Last administered on 04/14/21at 20:53; Start 04/14/21 at 21:00 Gabapentin (Neurontin) 400 mg TID PO Last administered on 04/15/21at 08:53; Start 04/14/21 at 14:00 Lisinopril (Prinivil) 20 mg HS PO ; Start 04/15/21 at 21:00 Active Scripts Active Gabapentin (Gabapentin) 400 Mg Capsule 400 Mg PO TID Reported Vitamin E (Vitamin E Mixed) 400 Unit Tablet 400 Unit PO DAILY [place] 3 Fish Oil Softgel ([place]-3 Fatty Acids/Fish Oil) 1 Each Capsule.dr 1 Each PO DAILY Noxifol-D3 2,500 Unit-1 mg Tab (Vitamin D3/Folic Acid) 2,500 Unit Tablet 1 Tab PO DAILY 30 Days Simvastatin 20 Mg Tablet 1 Tab PO QHS Triamterene-Hctz 37.5-25 Mg Cp (Triamterene/Hydrochlorothiazid) 1 Each Capsule 1 Cap PO DAILY Lisinopril 20 Mg Tablet 1 Tab PO DAILY Glipizide Er (Glipizide) 10 Mg Tab.er.24 1 Tab PO DAILY [cholesterol med] Hydrochlorothiazide Tablet (Hydrochlorothiazide) 12.5 Mg Tablet 12.5 Mg PO DAILY Metoprolol Succinate ( Xl ) (Metoprolol Succinate) 100 Mg Tab.er.24h 100 Mg PO DAILY Children's Aspirin (Aspirin) 81 Mg Tab.chew 81 Mg PO DAILY Metformin Hcl 500 Mg Tablet 500 Mg PO QID Vitals/I & O Vital Sign - Last 24 Hours 04/14/21 04/14/21 04/14/21 04/14/21 09:46 10:00 11:00 15:00 Temp 98.4 98.4 Pulse 82 71 71 75 Resp 16 B/P (MAP) 176/74 169/61 169/61 (97) 164/87 Pulse Ox 97 O2 Delivery Room Air 04/14/21 04/14/21 04/14/21 04/14/21 16:00 19:00 20:00 23:00 Temp 98.4 98.3 98.4 98.4 98.3 98.4 Pulse 73 68 63 Resp 18 16 23 B/P (MAP) 166/75 (105) 159/72 (101) 142/65 (90) Pulse Ox 96 99 97 O2 Delivery Room Air Room Air Room Air Room Air 04/15/21 04/15/21 04/15/21 04/15/21 03:00 07:00 08:00 08:51 Temp 98.4 97.7 98.4 97.7 Pulse 55 83 83 Resp 16 16 B/P (MAP) 150/74 (99) 198/93 (128) 198/93 Pulse Ox 93 97 O2 Delivery Room Air Room Air Room Air 04/15/21 04/15/21 08:52 08:54 Pulse 83 83 B/P (MAP) 198/93 198/93 Intake and Output 04/14/21 04/14/21 04/15/21 15:00 23:00 07:00 Intake Total 750 ml Balance 750 ml Justicifation of Admission Dx: Justifications for Admission: Justification of Admission Dx: N/A RADHA BERNAL MD Apr 15, 2021 09:22
--- NOTE | 2021-04-15 10:21 | NUR ---
SS following up with discharge planning. SS reviewed pt chart and discussed with pt RN. Pt is currently on room air. Discharge orders received for home with home healthcare. SS met with pt and spouse in room to discuss discharge planning and home healthcare. Pt and spouse declining home healthcare at this time. Pt reporting that he goes to outpatient PT in [place] and will continue with outpatient. Pt has walker at home. Cardiology consulted. Pt to discharge if Cardiology signs off. SS will continue to follow as needed for discharge planning.
[2021-04-15 11:00] VITALS: BP 148/69
--- NOTE | 2021-04-15 11:14 | PDOC ---
[employer] PROGRESS NOTE Date of Service DOS: DATE: 04/15/21 TIME: 11:14 Chief Complaint Chief Complaint Subdural hematoma - will monitor in ICU. Neurosurgery consulted. needs better BP control. Repeat CT head better neurosurg and neuro following Acute metabolic encephalopathy likely post-concussive, less likely post-ictal, no seizure history Syncope - vasovagal syncope versus orthostatic hypotension. on telemetry nicole toring check carotid Dopplers. PT for gait testing. Orthostatics Right shoulder pain musculoskeletal injury no fracture on radiograph Facial contusion -local wound care acute vasomotor nephropathy from dehydration Transaminitis -no clear etiology may be hypotension mediated Leukocytosis -stress related with SDH Diabetes type 2 - sliding scale Hypertension - IV labetalol High cholesterol - statin CAD s/p CABG - bb History of Present Illness History of Present Illness increase BP meds right thumb pain, pain control, OOB to chair downgrade to med monitor Vitals/I&O Vitals/I&O: Vital Signs Date Time Temp Pulse Resp B/P (MAP) Pulse Ox O2 Delivery O2 Flow Rate FiO2 04/15/21 08:54 83 198/93 04/15/21 08:00 Room Air 04/15/21 07:00 97.7 16 97 97.7 I & O 04/14/21 04/14/21 04/15/21 15:00 23:00 07:00 Intake Total 750 ml Balance 750 ml Physical Exam General: Alert, Cooperative, No acute distress Heart: Regular rate Abdomen: Normal bowel sounds, Soft, No tenderness, No hepatosplenomegaly, No masses Extremities: No edema, Normal pulses Skin: No rashes, Other (Right upper extremity with no obvious deformity but tenderness on palpation of the right shoulder, limited range of motion to the right upper extremity specifically shoulder due to pain. Equal radial, medial, ulnar sensation to the right fingers. +2 right radial pulse. Cap refill less than 2 seconds the right fingers) Labs Labs: Laboratory Tests Test 04/14/21 12:07 White Blood Count 10.6 x10^3/uL (4.0-11.0) Red Blood Count 4.70 x10^6/uL (4.30-5.70) Hemoglobin 14.2 g/dL (13.0-17.5) Hematocrit 42.1 % (39.0-53.0) Mean Corpuscular Volume 90 fL (79-100) Mean Corpuscular Hemoglobin 30 pg (25-35) Mean Corpuscular Hemoglobin Concent 34 g/dL (31-37) Red Cell Distribution Width 13.8 % (11.5-14.5) Platelet Count 192 x10^3/uL (140-400) Neutrophils (%) (Auto) 51 % (31-73) Lymphocytes (%) (Auto) 38 % (24-48) Monocytes (%) (Auto) 8 % (0-9) Eosinophils (%) (Auto) 3 % (0-3) Basophils (%) (Auto) 1 % (0-3) Neutrophils # (Auto) 5.4 x10^3/uL (1.8-7.7) Lymphocytes # (Auto) 4.0 x10^3/uL (1.0-4.8) Monocytes # (Auto) 0.8 x10^3/uL (0.0-1.1) Eosinophils # (Auto) 0.3 x10^3/uL (0.0-0.7) Basophils # (Auto) 0.1 x10^3/uL (0.0-0.2) Comment Review of Relevant I have reviewed the following items deirdre (where applicable) has been applied. Medications: Current Medications Medications (Trade) Dose Ordered Sig/[place] Route PRN Reason Start Time Stop Time Status Last Admin Dose Admin Lisinopril (Prinivil) 20 mg DAILY PO 04/14/21 13:00 04/15/21 09:05 DC 04/14/21 15:00 Simvastatin (Zocor) 20 mg QHS PO 04/14/21 21:00 04/14/21 20:53 Gabapentin (Neurontin) 400 mg TID PO 04/14/21 14:00 04/15/21 08:53 Justifications for Admission Other Justification JAYCE MAYA MD Apr 15, 2021 11:14
--- NOTE | 2021-04-15 11:18 | PDOC3 ---
Discharge Summary Visit Information Date of Admission: Apr 13, 2021 Date of Discharge: Apr 15, 2021 Final Diagnosis Subdural hematoma - will monitor in ICU. Neurosurgery consulted. needs better BP control. Repeat CT head better neurosurg and neuro following Acute metabolic encephalopathy likely post-concussive, less likely post-ictal, no seizure history Syncope - vasovagal syncope versus orthostatic hypotension. on telemetry monitoring check carotid Dopplers. PT for gait testing. Orthostatics Right shoulder pain musculoskeletal injury no fracture on radiograph Facial contusion -local wound care acute vasomotor nephropathy from dehydration Transaminitis -no clear etiology may be hypotension mediated Leukocytosis -stress related with SDH Diabetes type 2 - sliding scale Hypertension - IV labetalol High cholesterol - statin CAD s/p CABG - bb Brief Hospital Course Allergies Allergies Coded Allergies Type Severity Reaction Last Updated Verified Sulfa (Sulfonamide Antibiotics) Allergy Severe Rash 04/13/21 Yes Penicillins Allergy Unknown 04/13/21 Yes Vital Signs Vital Signs Date Time Temp Pulse Resp B/P (MAP) Pulse Ox O2 Delivery O2 Flow Rate FiO2 04/15/21 08:54 83 198/93 04/15/21 08:00 Room Air 04/15/21 07:00 97.7 16 97 97.7 Lab Results Laboratory Tests Test 04/14/21 10:05 04/14/21 12:07 Sodium Level 138 mmol/L (136-145) Potassium Level 4.1 mmol/L (3.5-5.1) Chloride Level 103 mmol/L (98-107) Carbon Dioxide Level 22 mmol/L (21-32) Anion Gap 13 (6-14) Blood Urea Nitrogen 15 mg/dL (8-26) Creatinine 0.9 mg/dL (0.7-1.3) Estimated GFR (Cockcroft-Gault) 81.6 BUN/Creatinine Ratio 17 (6-20) Glucose Level 267 mg/dL (70-99) Calcium Level 8.5 mg/dL (8.5-10.1) Total Bilirubin 1.2 mg/dL (0.2-1.0) Aspartate Amino Transf (AST/SGOT) 27 U/L (15-37) Alanine Aminotransferase (ALT/SGPT) 53 U/L (16-63) Alkaline Phosphatase 64 U/L (46-116) Total Protein 7.0 g/dL (6.4-8.2) Albumin 3.1 g/dL (3.4-5.0) Albumin/Globulin Ratio 0.8 (1.0-1.7) White Blood Count 10.6 x10^3/uL (4.0-11.0) Red Blood Count 4.70 x10^6/uL (4.30-5.70) Hemoglobin 14.2 g/dL (13.0-17.5) Hematocrit 42.1 % (39.0-53.0) Mean Corpuscular Volume 90 fL (79-100) Mean Corpuscular Hemoglobin 30 pg (25-35) Mean Corpuscular Hemoglobin Concent 34 g/dL (31-37) Red Cell Distribution Width 13.8 % (11.5-14.5) Platelet Count 192 x10^3/uL (140-400) Neutrophils (%) (Auto) 51 % (31-73) Lymphocytes (%) (Auto) 38 % (24-48) Monocytes (%) (Auto) 8 % (0-9) Eosinophils (%) (Auto) 3 % (0-3) Basophils (%) (Auto) 1 % (0-3) Neutrophils # (Auto) 5.4 x10^3/uL (1.8-7.7) Lymphocytes # (Auto) 4.0 x10^3/uL (1.0-4.8) Monocytes # (Auto) 0.8 x10^3/uL (0.0-1.1) Eosinophils # (Auto) 0.3 x10^3/uL (0.0-0.7) Basophils # (Auto) 0.1 x10^3/uL (0.0-0.2) Laboratory Tests Test 04/14/21 12:07 White Blood Count 10.6 x10^3/uL (4.0-11.0) Red Blood Count 4.70 x10^6/uL (4.30-5.70) Hemoglobin 14.2 g/dL (13.0-17.5) Hematocrit 42.1 % (39.0-53.0) Mean Corpuscular Volume 90 fL (79-100) Mean Corpuscular Hemoglobin 30 pg (25-35) Mean Corpuscular Hemoglobin Concent 34 g/dL (31-37) Red Cell Distribution Width 13.8 % (11.5-14.5) Platelet Count 192 x10^3/uL (140-400) Neutrophils (%) (Auto) 51 % (31-73) Lymphocytes (%) (Auto) 38 % (24-48) Monocytes (%) (Auto) 8 % (0-9) Eosinophils (%) (Auto) 3 % (0-3) Basophils (%) (Auto) 1 % (0-3) Neutrophils # (Auto) 5.4 x10^3/uL (1.8-7.7) Lymphocytes # (Auto) 4.0 x10^3/uL (1.0-4.8) Monocytes # (Auto) 0.8 x10^3/uL (0.0-1.1) Eosinophils # (Auto) 0.3 x10^3/uL (0.0-0.7) Basophils # (Auto) 0.1 x10^3/uL (0.0-0.2) Brief Hospital Course Mr. Hendrickson is a 80-year-old, admit after a fall. Transfer hre from [facility] and he tells 2 stories. ONe was he tripped on the rocks that are loose and are stacked in his backyard. His is worried that he slumped over at sikh while seated Neuro consult, Dx was cardiogenic syncope. fall and injury to face and arm and knee, abrasions. has cardiac history including coronary artery bypass surgery Discharge Information Condition at Discharge: Improved Follow Up: Weeks Disposition/Orders: D/C to Home Scheduled Aspirin (Children's Aspirin) 81 Mg Tab.chew, 81 MG PO DAILY for heart health, (Reported) Entered as Reported by: GISSELL PLEITEZ on 04/14/21 0558 Last Action: Continued on 04/14/211218 by JAYCE MAYA Gabapentin (Gabapentin ) 400 Mg Capsule, 400 MG PO TID for nerve pain, #90 Prescribed by: JAYCE MAYA on 04/15/21 0742 Glipizide (Glipizide Er) 10 Mg Tab.er.24, 1 TAB PO DAILY for diabetes, #90 Ref 1 (Reported) Entered as Reported by: VICKY GUTIERREZ on 04/14/21 1133 Last Action: HELD on 04/14/211218 by JAYCE MAYA Hydrochlorothiazide (Hydrochlorothiazide Tablet) 12.5 Mg Tablet, 12.5 MG PO DAILY for DIURETIC, Ref 0 (Reported) Entered as Reported by: GISSELL PLEITEZ on 04/14/21 0640 Last Action: HELD on 04/14/211218 by JAYCE MAYA Lisinopril (Lisinopril) 20 Mg Tablet, 1 TAB PO DAILY for hypertension, #30 Ref 5 (Reported) Entered as Reported by: VICKY GUTIERREZ on 04/14/211132 Last Action: Continued on 04/14/211218 by JAYCE MAYA Metformin Hcl (Metformin Hcl) 500 Mg Tablet, 500 MG PO QID for ANTI-DIABETIC, Ref 0 (Reported) Entered as Reported by: GISSELL PLEITEZ on 04/14/21557 Last Action: HELD on 04/14/211218 by JAYCE MAYA Metoprolol Succinate (Metoprolol Succinate ( Xl )) 100 Mg Tab.er.24h, 100 MG PO DAILY for FOR HYPERTENSION, #30 Ref 0 (Reported) Entered as Reported by: GISSELL PLEITEZ on 04/14/21557 Last Action: HELD on 04/14/211218 by JAYCE MAYA Merino-3 Fatty Acids/Fish Oil (Merino 3 Fish Oil Softgel) 1 Each Capsule.dr, 1 EACH PO DAILY for heart health, (Reported) Entered as Reported by: VICKY GUTIERREZ on 04/14/211132 Last Action: HELD on 04/14/211218 by JAYCE MAYA Simvastatin (Simvastatin) 20 Mg Tablet, 1 TAB PO QHS for high cholesterol, #30 Ref 5 (Reported) Entered as Reported by: VICKY GUTIERREZ on 04/14/211132 Last Action: Continued on 04/14/211218 by JAYCE MAYA Triamterene/Hydrochlorothiazid (Triamterene-Hctz 37.5-25 Mg Cp) 1 Each Capsule, 1 CAP PO DAILY for diuretic, #30 Ref 5 (Reported) Entered as Reported by: VICKY GUTIERREZ on 04/14/211132 Last Action: HELD on 04/14/211218 by JAYCE MAYA Vitamin D3/Folic Acid (Noxifol-D3 2,500 Unit-1 mg Tab) 2,500 Unit Tablet, 1 TAB PO DAILY for supplement for 30 Days, #30 Ref 0 (Reported) Entered as Reported by: VICKY GUTIERREZ on 04/14/211132 Last Action: HELD on 04/14/211218 by JAYCE MAYA Vitamin E Mixed (Vitamin E) 400 Unit Tablet, 400 UNIT PO DAILY for supplement, (Reported) Entered as Reported by: VICKY GUTIERREZ on 04/14/211132 Last Action: HELD on 04/14/211218 by JAYCE MAYA Miscellaneous Medications [cholesterol med] , (Reported) Entered as Reported by: GISSELL PLEITEZ on 04/14/21640 Last Action: New Order on 04/14/21640 by GISSELL PLEITEZ Discontinued Medications Gabapentin (Gabapentin) 800 Mg Tablet, 800 MG PO TID for NEUROGENIC PAIN, (Reported) Entered as Reported by: VICKY GUTIERREZ on 04/14/211132 Last Action: HELD on 04/14/211218 by JAYCE MAYA Patient Instructions Patient Instructions > 30 min face to face Justicifation of Admission Dx: Justifications for Admission: Justification of Admission Dx: N/A JAYCE MAYA MD Apr 15, 2021 11:18
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
[2021-04-15] MEDS ORDERED: LISINOPRIL 20 MG TABLET PO SCH (21:00)
--- NOTE | 2021-04-16 12:11 | CARD ---
MR#: [id number] Date of Study: 04/15/2021 Ordering Physician: CONNER GOMEZ, Referring Physician: CONNER GOMEZ Tech: Meenu Grey [facility] APPROVED REPORT EXAM: Two-dimensional and M-mode echocardiogram with Doppler and color Doppler. Other Information Quality : Technically LimitedHR: 69bpm Rhythm : NSR INDICATION Syncope RISK FACTORS Hypertension LEFT VENTRICLE The left ventricle is normal size. There is mild concentric left ventricular hypertrophy. The left ve ntricular systolic function is normal. Estimated ejection fraction 55-60%. There is normal LV segmen ariadna wall motion. Transmitral Doppler flow pattern is Grade I-abnormal relaxation pattern. RIGHT VENTRICLE The right ventricle is normal size. There is normal right ventricular wall thickness. The right ventr icular systolic function is normal. ATRIA The left atrium size is normal. The right atrium size is normal. The interatrial septum is intact wit h no evidence for an atrial septal defect or patent foramen ovale as noted on 2-D or Doppler imaging. AORTIC VALVE The aortic valve is calcified but opens well. Doppler and Color Flow revealed no significant aortic r egurgitation. There is no significant aortic valvular stenosis. MITRAL VALVE The mitral valve is normal in structure and function. There is no evidence of mitral valve prolapse. There is no mitral valve stenosis. Doppler and Color Flow revealed trace mitral regurgitation. TRICUSPID VALVE The tricuspid valve is normal in structure and function. Doppler and Color Flow revealed trace tricus pid regurgitation. Estimated PAP 35-30 mmHg. There is no tricuspid valve stenosis. PULMONIC VALVE The pulmonary valve is normal in structure and function. Doppler and Color Flow revealed no pulmonic valvular regurgitation. GREAT VESSELS The aortic root is normal in size. The ascending aorta is normal in size. Due to poor image quality, the IVC could not be assessed. PERICARDIAL EFFUSION There is no evidence of significant pericardial effusion. Critical Notification Critical Value: No <Conclusion> The left ventricular systolic function is normal. Estimated ejection fraction 55-60%. There is normal LV segmental wall motion. Trace mitral regurgitation. Trace tricuspid regurgitation. Estimated PAP 35 mmHg. There is no evidence of significant pericardial effusion. Signed by : Mike Walsh, Electronically Approved : 04/16/2021 12:11:05
== END 2021-04-15 18:58 | disposition home or self-care (01) | DRG 82 ==
LOC: 1 WEST ICU 01:28
PROVIDERS: ADMIT Internal Medicine; ATTEND Internal Medicine
DX: S06.5X9A Traumatic subdural hemorrhage with loss of consciousness of unspecified duration, initial encounter (principal); N17.0 Acute kidney failure with tubular necrosis; G93.41 Metabolic encephalopathy; E11.9 Type 2 diabetes mellitus without complications; E78.00 Pure hypercholesterolemia, unspecified; E78.5 Hyperlipidemia, unspecified; E86.0 Dehydration; I10 Essential (primary) hypertension; I25.10 Atherosclerotic heart disease of native coronary artery without angina pectoris; M47.812 Spondylosis without myelopathy or radiculopathy, cervical region; Z20.822 Contact with and (suspected) exposure to COVID-19; Z82.49 Family history of ischemic heart disease and other diseases of the circulatory system; Z85.828 Personal history of other malignant neoplasm of skin; Z87.891 Personal history of nicotine dependence; Z95.1 Presence of aortocoronary bypass graft; Z95.5 Presence of coronary angioplasty implant and graft; K21.9 Gastro-esophageal reflux disease without esophagitis; W18.39XA Other fall on same level, initial encounter; Y93.89 Activity, other specified; Y92.89 Other specified places as the place of occurrence of the external cause; Y99.8 Other external cause status; Z88.0 Allergy status to penicillin; Z88.2 Allergy status to sulfonamides; I95.1 Orthostatic hypotension; R74.01 Elevation of levels of liver transaminase levels
CPT/HCPCS: 36415; 70450; 73070; 73140; 80053; 85025; 93306; 93880; J3010; J3490; J7030; 97530-GP; G0378

== ENCOUNTER → 2021-04-29 | Outpatient (CLI) | payer MEDICARE ==
[2021-04-15 11:00] VITALS: BP 148/69
[~2021-04-29] MED LIST: ASPI81TA59 PO; GABA-689 PO; GABA800T5 PO; GLIP10TA24 PO; HYDR12.58 PO; LISI20TA18 PO; METF500T16 PO; METO-247 PO; OMEG1CAP38 PO; SIMV20TA18 PO; TRIA1CAP3 PO; VITA25006 PO; VITA400T6 PO; cholesterol med
--- NOTE | 2021-04-29 11:49 | RAD ---
EXAM: CT HEAD WITHOUT CONTRAST. HISTORY: Subdural hematoma. TECHNIQUE: Computed tomography of the head was performed without intravenous contrast. One or more of the following individualized dose reduction techniques were utilized for this examination: 1. Automated exposure control. 2. Adjustment of the mA and/or kV according to patient size. 3. Use of iterative reconstruction technique. COMPARISON: 04/13/2021. FINDINGS: A tiny left frontal parafalcine subdural hematoma is stable to decreased. Hypoattenuation w ithin the periventricular white matter indicates mild chronic microangiopathic change. Prominence of the lateral ventricles and hemispheric sulci indicates moderate atrophy. There are changes of bilateral maxillary sinus and ethmoid decompressive surgery. There is moderate r esidual mucosal thickening throughout the paranasal sinuses, except within the frontal sinus which is clear. There are changes of bilateral cataract surgery. The temporal bones are unremarkable. The tray varium reveals no suspicious lesions. There are atherosclerotic calcifications of the internal caroti d arteries. IMPRESSION: 1. Stable to slightly decreased tiny left frontal parafalcine subdural hematoma. No significant mass effect. 2. Moderate atrophy and mild chronic microangiopathic white matter change. Electronically signed by: Rachel Paniagua MD (04/29/2021 11:46 AM) [id number]
== END ==
LOC: CT 10:06
PROVIDERS: ATTEND Neurological Surgery
DX: S06.5X0A Traumatic subdural hemorrhage without loss of consciousness, initial encounter (principal); I65.23 Occlusion and stenosis of bilateral carotid arteries; G31.9 Degenerative disease of nervous system, unspecified; R90.82 White matter disease, unspecified; J34.89 Other specified disorders of nose and nasal sinuses; Z98.42 Cataract extraction status, left eye; Z98.41 Cataract extraction status, right eye
CPT/HCPCS: 70450